=== PATIENT | female | born 2000 | race Two or more races ===

== ENCOUNTER 2020-03-14 21:05 | Inpatient (IN) | payer OTHER ==
[2020-03-14] MEDS ORDERED: DEXTROSE 5%-LACTATED RINGERS 500 ML IV SCH (22:45)
[2020-03-14 23:41] LABS: EPI CELLS 34 /uL (0-25.1); HYALINE CASTS 4 /uL (0-3.1); PH,URINE 8.5 (5.0-8.0); URINE APPEARANCE CLOUDY; URINE BACTERIA 2459 /uL (0-1359); URINE BILIRUBIN NEGATIVE (NEGATIVE); URINE COLOR YELLOW; URINE GLUCOSE (UA) NEGATIVE (NEGATIVE); URINE KETONE NEGATIVE (NEGATIVE); URINE LEUK ESTERASE 2+ (NEGATIVE); URINE NITRITE NEGATIVE (NEGATIVE); URINE PROTEIN 2+ (NEGATIVE); URINE RBC 6 /uL (0-23.9); URINE UROBILINOGEN 0.2 mg/dL (0.2-1.0); URINE WBC 355 /uL (0-25.8)
[2020-03-14] MEDS ORDERED: DEXTROSE 5%-LACTATED RINGERS 1,000 ML IV SCH (23:45)
[2020-03-15] MEDS ORDERED: AMPICILLIN - 2 GM in SODIUM CHLORIDE 100 ML IVPB ONE (00:30)
[2020-03-15] MEDS ORDERED: ELECTROLYTE-148 SOLN 1,000 ML IV SCH (00:30)
[2020-03-15] MEDS ORDERED: BETAMET ACET/BETAMET NA PH 30 MG/5 ML VIAL IM ONE (00:31)
[2020-03-15] MEDS ORDERED: MAGNESIUM 4GM/H20 - 4 GM/100 ML IVPB IVPB ONE (00:42)
[2020-03-15] MEDS ORDERED: NITROFURANTOIN MACROCRYSTAL 50 MG CAPSULE (FP) PO SCH (00:45)
[2020-03-15] MEDS ORDERED: MAGNESIUM 4GM/H20 - 4 GM/100 ML IVPB IVPB SCH (00:45)
[2020-03-15 01:18] LABS: BASO % 0.1 % (0-2.0); EOS % 0.2 % (0-4.5); HEMOGLOBIN 9.6 GM/dL (10.7-15.3); LYMPH % 13.2 % (8-40); MCH 31.5 pg (25.7-33.7); MCHC 34.2 g/dl (32.0-36.0); MEAN CELL VOLUME 92.2 fl (80-96); MEAN PLT VOLUME 9.4 fl (7.5-11.1); MONO % 10.1 % (3.8-10.2); NEUT % 76.4 % (42.8-82.8); PLATELET COUNT 122 K/MM3 (134-434); RBC 3.04 M/mm3 (3.60-5.2); RDW 14.3 % (11.6-15.6); WHITE BLOOD COUNT 6.2 K/mm3 (4.0-10.0)
[2020-03-15 01:27] LABS: INR 1.03 (0.83-1.09); PROTHROMBIN TIME (PATIENT) 12.6 SEC (9.7-13.0)
[2020-03-15] MEDS ORDERED: BETAMET ACET/BETAMET NA PH 30 MG/5 ML VIAL ONE (01:28)
[2020-03-15 01:29] LABS: ACTIVATED PTT 27.7 SECONDS (25.2-36.5)
[2020-03-15] MEDS ORDERED: AMPICILLIN SODIUM 2 GM VIAL ONE (01:29)
[2020-03-15] MEDS ORDERED: MAGNESIUM SULFATE 20GM/500ML - 20 GM/500 ML INFUS.BAG IV SCH (01:30)
[2020-03-15 01:31] LABS: CALCIUM 8.4 mg/dL (8.5-10.1); POTASSIUM 3.6 mmol/L (3.5-5.1)
[2020-03-15 01:33] LABS: BLOOD UREA NITROGEN 3.3 mg/dL (7-18)
[2020-03-15 01:47] LABS: CREATININE 0.4 mg/dL (0.55-1.3)
[2020-03-15 02:49] VITALS: BP 123/55; PULSE 126; TEMP 98.4; BMI 27.9
== END 2020-03-15 02:25 | disposition short-term general hospital (02) | DRG 565 ==
LOC: JDEL 21:05 → JLDR 03-15 00:30
PROVIDERS: ADMIT Student in an Organized Health Care Education/Training Program; ATTEND Student in an Organized Health Care Education/Training Program
DX: O47.03 False labor before 37 completed weeks of gestation, third trimester (principal); Z3A.31 31 weeks gestation of pregnancy
CPT/HCPCS: 36415; 59025; 76801-TC; 76817-TC; 80048; 81003; 85025; 85610; 85730; 86780; 86850; 86900; 86901; 96372; C9803; U0003

== ENCOUNTER 2020-04-02 15:50 | Inpatient (IN) | payer OTHER ==
[2020-04-02] MEDS ORDERED: AMPICILLIN SODIUM 2 GM VIAL ONE (16:30)
[2020-04-02] MEDS ORDERED: AMPICILLIN - 2 GM in SODIUM CHLORIDE 100 ML IVPB ONE (17:00)
[2020-04-02] MEDS ORDERED: DEXTROSE 5%-LACTATED RINGERS 1,000 ML IV SCH (17:00)
[2020-04-02] MEDS ORDERED: BUTORPHANOL TARTRATE 2 MG/ML VIAL IVPB ONE (17:06)
[2020-04-02] MEDS ORDERED: PROMETHAZINE HCL 25 MG/1 ML VIAL IVPUSH ONE (17:06)
[2020-04-02] MEDS ORDERED: PROMETHAZINE HCL 25 MG/1 ML VIAL ONE (17:08)
[2020-04-02] MEDS ORDERED: BUTORPHANOL TARTRATE 2 MG/ML VIAL ONE (17:08)
[2020-04-02 17:15] LABS: BASO % 0.1 % (0-2.0); EOS % 0.2 % (0-4.5); HEMOGLOBIN 11.1 GM/dL (10.7-15.3); LYMPH % 9.8 % (8-40); MCH 30.9 pg (25.7-33.7); MCHC 33.6 g/dl (32.0-36.0); MEAN CELL VOLUME 91.8 fl (80-96); MEAN PLT VOLUME 7.5 fl (7.5-11.1); MONO % 5.7 % (3.8-10.2); NEUT % 84.2 % (42.8-82.8); PLATELET COUNT 322 K/MM3 (134-434); RDW 14.5 % (11.6-15.6); WHITE BLOOD COUNT 14.9 K/mm3 (4.0-10.0)
[2020-04-02 17:25] LABS: INR 1.05 (0.83-1.09); PROTHROMBIN TIME (PATIENT) 12.7 SEC (9.7-13.0)
[2020-04-02 17:27] LABS: ACTIVATED PTT 31.4 SECONDS (25.2-36.5)
[2020-04-02 17:31] LABS: POTASSIUM 3.7 mmol/L (3.5-5.1)
[2020-04-02 17:33] LABS: CALCIUM 8.5 mg/dL (8.5-10.1)
[2020-04-02 17:34] LABS: ALBUMIN 2.7 g/dl (3.4-5.0); BLOOD UREA NITROGEN 4.6 mg/dL (7-18)
[2020-04-02 17:38] LABS: CREATININE 0.6 mg/dL (0.55-1.3)
[2020-04-02 17:40] LABS: BILIRUBIN,TOTAL 0.4 mg/dL (0.2-1); TOT PROT 7.2 g/dl (6.4-8.2)
[2020-04-02 17:51] VITALS: BMI 28.8
[2020-04-02] MEDS ORDERED: PCA PUMP NR ONE (19:53)
[2020-04-02] MEDS ORDERED: FENTANYL/BUPIVACAINE/NS/PF - PCEA - 50 ML DISP.SYRIN EP ONE ×2 (19:53→23:44)
[2020-04-02] MEDS ORDERED: BUPIVACAINE HCL/PF 0.25% (2.5MG/ML) 10 ML VIAL ONE (19:57)
[2020-04-02] MEDS ORDERED: NALOXONE HCL 0.4 MG/ML VIAL IVPUSH PRN (20:33)
[2020-04-02] MEDS ORDERED: FENTANYL/BUPIVACAINE/NS/PF - PCEA - 50 ML DISP.SYRIN EP SCH (20:45)
[2020-04-02] MEDS: AMPICILLIN - 1 GM in SODIUM CHLORIDE 100 ML IVPB SCH (21:05)
[2020-04-02] MEDS ORDERED: AMPICILLIN SODIUM 1 GM VIAL ONE (21:05)
[2020-04-03] MEDS: AMPICILLIN - 1 GM in SODIUM CHLORIDE 100 ML IVPB SCH ×4 (01:15→18:06)
[2020-04-03] MEDS ORDERED: AMPICILLIN SODIUM 1 GM VIAL ONE (01:38)
[2020-04-03] MEDS ORDERED: BUPIVACAINE HCL/PF 0.25% (2.5MG/ML) 10 ML VIAL ONE (01:40)
[2020-04-03] MEDS ORDERED: OXYTOCIN 20 UNITS in 0.9% NS 20 UNIT/1,000 ML INFUS.BAG IV ONE (01:42)
[2020-04-03] MEDS ORDERED: LIDOCAINE HCL 1% PRESERVATIVE FREE - 30ML VIAL ONE (01:42)
[2020-04-03] MEDS ORDERED: MISOPROSTOL 100 MCG TABLET ONE (02:43)
[2020-04-03] MEDS ORDERED: MISOPROSTOL 100 MCG TABLET NR SCH (02:45)
[2020-04-03] MEDS ORDERED: oxyCODONE HCL 5 MG TABLET PO PRN (04:16)
[2020-04-03] MEDS ORDERED: BISACODYL 10 MG SUPP.RECT RC PRN (04:16)
[2020-04-03] MEDS ORDERED: BENZOCAINE 20% 57 GM BOTTLE TP PRN (04:16)
[2020-04-03] MEDS ORDERED: ACETAMINOPHEN 325 MG TABLET (FP) PO PRN (04:16)
[2020-04-03] MEDS ORDERED: BENZOCAINE 28 GM HEMORRHOIDAL OINTMENT TP PRN (04:16)
[2020-04-03] MEDS ORDERED: METHYLERGONOVINE MALEATE 0.2 MG/1 ML AMP IM PRN (04:16)
[2020-04-03] MEDS ORDERED: WITCH HAZEL 50% (TUCKS) 40 PAD/JAR PAD TP PRN (04:16)
[2020-04-03] MEDS ORDERED: IBUPROFEN 600 MG TABLET (FP) PO PRN (04:16)
[2020-04-03] MEDS ORDERED: OXYTOCIN 20 UNITS in 0.9% NS 20 UNIT/1,000 ML INFUS.BAG IV SCH (04:30)
[2020-04-03] MEDS: FERROUS SO4 325 MG TABLET (FP) PO SCH (08:15)
[2020-04-03] MEDS: PRENATAL VITAMINS W/ FOLIC ACID TABLET (FP) PO SCH (09:33)
[2020-04-04 08:35] LABS: BASO % 0.1 % (0-2.0); EOS % 0.4 % (0-4.5); HEMATOCRIT 27.4 % (32.4-45.2); HEMOGLOBIN 9.3 GM/dL (10.7-15.3); MCH 30.9 pg (25.7-33.7); MEAN CELL VOLUME 90.8 fl (80-96); MEAN PLT VOLUME 7.7 fl (7.5-11.1); MONO % 3.9 % (3.8-10.2); NEUT % 81.6 % (42.8-82.8); PLATELET COUNT 279 K/MM3 (134-434); RBC 3.02 M/mm3 (3.60-5.2); RDW 14.5 % (11.6-15.6); WHITE BLOOD COUNT 13.8 K/mm3 (4.0-10.0)
[2020-04-04 09:12] LABS: HIV INTERPRETATION NEGATIVE (NEGATIVE)
[2020-04-04] MEDS: PRENATAL VITAMINS W/ FOLIC ACID TABLET (FP) PO SCH (09:23)
[2020-04-04] MEDS: FERROUS SO4 325 MG TABLET (FP) PO SCH ×2 (09:23→18:12)
[2020-04-04] MEDS ORDERED: SENNOSIDES/DOCUSATE COMBO (SENNA PLUS) TABLET (UD) PO PRN (22:00)
[2020-04-05] MEDS: FERROUS SO4 325 MG TABLET (FP) PO SCH (08:47)
[2020-04-05] MEDS: PRENATAL VITAMINS W/ FOLIC ACID TABLET (FP) PO SCH (09:59)
[2020-04-05 13:50] VITALS: BP 118/76; PULSE 76; TEMP 98.5
== END 2020-04-05 11:45 | disposition home or self-care (01) | DRG 560 ==
LOC: JDEL 15:50 → JLDR 16:10 → J3W 04-03 05:06
PROVIDERS: ADMIT Obstetrics & Gynecology; ATTEND Obstetrics & Gynecology
PROC: 10E0XZZ Delivery of Products of Conception, External Approach (ICD-10-PCS; principal; 2020-04-03)
PROC: 0W8NXZZ Division of Female Perineum, External Approach (ICD-10-PCS; 2020-04-03)
DX: O98.52 Other viral diseases complicating childbirth (principal); U07.1 COVID-19; O60.14X0 Preterm labor third trimester with preterm delivery third trimester, not applicable or unspecified; O69.81X0 Labor and delivery complicated by cord around neck, without compression, not applicable or unspecified; Z3A.34 34 weeks gestation of pregnancy; Z37.0 Single live birth
CPT/HCPCS: 36415; 59409; 80053; 82728; 85025; 85379; 85610; 85730; 86140; 86780; 86850; 86900; 86901; 87389; 88307-TC; C9803; U0003

== ENCOUNTER 2021-09-25 12:59 | Emergency (ER) | payer OTHER ==
[2021-09-25 13:29] VITALS: BP 116/65; PULSE 69; TEMP 97.9; BMI 24.9
[2021-09-25] MEDS ORDERED: FLUCONAZOLE 150 MG TABLET PO ONE ×2 (15:56→16:00)
[2021-09-25 17:15] LABS: HCG,QUALITATIVE URINE Negative
[2021-09-25 17:17] LABS: EPI CELLS >36 /uL (0-25.1); HYALINE CASTS 16 /uL (0-3.1); PH,URINE 7.5 (5.0-8.0); URINE APPEARANCE CLEAR; URINE BACTERIA 150 /uL (0-1359); URINE BILIRUBIN NEGATIVE (NEGATIVE); URINE COLOR YELLOW; URINE GLUCOSE (UA) NEGATIVE (NEGATIVE); URINE KETONE TRACE (NEGATIVE); URINE LEUK ESTERASE TRACE (NEGATIVE); URINE NITRITE NEGATIVE (NEGATIVE); URINE PROTEIN 1+ (NEGATIVE); URINE RBC 1 /uL (0-23.9); URINE UROBILINOGEN 0.2 mg/dL (0.2-1.0); URINE WBC 60 /uL (0-25.8)
== END 2021-09-25 16:41 | disposition home or self-care (01) ==
LOC: JERFT 12:59
DX: B37.3 Candidiasis of vulva and vagina (principal)
CPT/HCPCS: 36415; 81003; 84703; 87086; 87491; 87591; 99283-25